=== PATIENT | female | born 1970 | race Caucasian/White ===

== ENCOUNTER 2017-03-06 08:58 | Emergency (ER) | payer SELFPAY ==
[~2017-03-06] VITALS: Ht 170.2 cm; Wt 63.5 kg
[2017-03-06 09:05] VITALS: BP_SYST 125
[2017-03-06 09:55] VITALS: BP_SYST 119
== END 2017-03-06 09:55 | disposition home or self-care (01) ==
LOC: SED 08:58
DX: S01.511D Laceration without foreign body of lip, subsequent encounter (principal); W54.1XXD Struck by dog, subsequent encounter
CPT/HCPCS: 99282

== ENCOUNTER 2017-03-08 07:34 | Emergency (ER) | payer SELFPAY ==
[~2017-03-08] VITALS: Ht 170.2 cm; Wt 62.6 kg
[2017-03-08 07:38] VITALS: BP_SYST 127
[2017-03-08 08:02] VITALS: BP_SYST 127
== END 2017-03-08 08:02 | disposition home or self-care (01) ==
LOC: SED 07:34
DX: S01.511D Laceration without foreign body of lip, subsequent encounter (principal); Z88.0 Allergy status to penicillin; W54.1XXD Struck by dog, subsequent encounter
CPT/HCPCS: 99281